=== PATIENT | male | born 1960 | race Two or more races ===

== ENCOUNTER 2017-09-16 20:49 | Emergency (ER) | payer OTHER ==
[~2017-09-16] VITALS: Ht 185.4 cm; Wt 78.5 kg
[2017-09-16 21:05] VITALS: BP 138/67; Ht 185.4 cm; Wt 78.5 kg
== END 2017-09-17 00:17 | disposition home or self-care (01) ==
LOC: ED 20:49
DX: S62.660A Nondisplaced fracture of distal phalanx of right index finger, initial encounter for closed fracture (principal); E11.9 Type 2 diabetes mellitus without complications; E78.00 Pure hypercholesterolemia, unspecified; Z88.2 Allergy status to sulfonamides; X58.XXXA Exposure to other specified factors, initial encounter; Y93.89 Activity, other specified; Y99.8 Other external cause status; Y92.89 Other specified places as the place of occurrence of the external cause